=== PATIENT | female | born 1980 | race Caucasian/White ===

== ENCOUNTER 2016-09-12 16:21 | Emergency (ER) | payer OTHER ==
[~2016-09-12] VITALS: Ht 157.5 cm; Wt 90.7 kg
[2016-09-12 16:45] LABS: URINE BILIRUBIN NEGATIVE (Negative); URINE BLOOD TRACE (Negative); URINE COLOR YELLOW; URINE GLUCOSE-RANDOM* NEGATIVE (Negative); URINE KETONES NEGATIVE (Negative); URINE LEUKOCYTES-REFLEX NEGATIVE (Negative); URINE PROTEIN (DIPSTICK) NEGATIVE (Negative); URINE SPECIFIC GRAVITY <= 1.005 (1.003-1.035); URINE UROBILINOGEN 0.2 E.U./dl (0.2-1.0)
[2016-09-12] MEDS ORDERED: FLAGYL500 MG PO (16:57)
[2016-09-12] MEDS ORDERED: CIPRO500 MG PO (16:57)
[2016-09-12] MEDS ORDERED: VENLAFAXIN75 MG/1 T2 PO (16:57)
[2016-09-12] MEDS ORDERED: DICLOFENAC SODI75 MG PO (16:58)
[2016-09-12] MEDS ORDERED: HYDROXYZINE HCL25 M1 PO (16:58)
[2016-09-12] MEDS ORDERED: HYDROCODON-ACE1 EAC7 PO (16:59)
[2016-09-12] MEDS ORDERED: OMEPRAZOLE40 MG PO (16:59)
[2016-09-12] MEDS ORDERED: TRAZODONE HCL50 MG PO (17:00)
[2016-09-12] MEDS ORDERED: ZANAFLEX4 MG PO (17:00)
[2016-09-12] MEDS ORDERED: TRAMADOL 50 MG50 MG PO (17:00)
[2016-09-12 17:10] LABS: ABSOLUTE NEUTROPHILS 4.7 thou/uL (1.4-8.2); BASOPHILS 0.7 % (0.0-2.0); EOSINOPHILS 3.1 % (0.0-3.0); HEMATOCRIT 40.4 % (37.0-47.0); HEMOGLOBIN 13.6 gm/dL (12.0-15.0); MCH 30.9 pg (26.0-34.0); MCHC 33.7 % (28.0-37.0); MCV 91.9 fL (80.0-100.0); MONOCYTES 5.6 % (1.0-8.0); PLATELET COUNT 243 thou/uL (150-400); POLYS 62.6 % (36.0-66.0); RBC 4.39 mil/uL (4.20-5.00); RDW 13.4 % (10.5-14.5); WBC 7.6 thou/uL (4.0-11.0)
[2016-09-12 17:14] LABS: MANUAL DIFF NO
[2016-09-12 17:21] LABS: CALCIUM 8.7 mg/dL (8.5-10.1); CREATININE 0.7 mg/dL (0.6-1.3); POTASSIUM 3.5 mmol/L (3.5-5.1)
[2016-09-12 17:24] LABS: ALBUMIN 3.8 g/dL (3.4-5.0); TOTAL BILIRUBIN 0.2 mg/dL (<0.1-1.0); TOTAL PROTEIN 7.2 g/dL (6.4-8.2)
[2016-09-12] MEDS ORDERED: ONDANSETRON HCL4 M2 PO (18:17)
[2016-09-12 19:12] VITALS: BP 121/76
== END 2016-09-12 16:45 | disposition home or self-care (01) ==
LOC: ER 16:21
PROVIDERS: Physician Assistant
DX: R10.32 Left lower quadrant pain (principal); R11.2 Nausea with vomiting, unspecified; R19.7 Diarrhea, unspecified; R51 Headache; Z88.5 Allergy status to narcotic agent; Z88.1 Allergy status to other antibiotic agents; Z90.49 Acquired absence of other specified parts of digestive tract; Z98.890 Other specified postprocedural states; Z90.711 Acquired absence of uterus with remaining cervical stump

== ENCOUNTER 2017-03-14 15:10 | Emergency (ER) | payer OTHER ==
[~2017-03-14] VITALS: Ht 154.9 cm; Wt 90.7 kg
[~2017-03-14 15:10] MED LIST: CIPRO500 MG PO; DICLOFENAC SODI75 MG PO; FLAGYL500 MG PO; HYDROCODON-ACE1 EAC7 PO; HYDROXYZINE HCL25 M1 PO; OMEPRAZOLE40 MG PO; ONDANSETRON HCL4 M2 PO; TRAMADOL 50 MG50 MG PO; TRAZODONE HCL50 MG PO; VENLAFAXIN75 MG/1 T2 PO; ZANAFLEX4 MG PO
[2017-03-14 15:51] LABS: URINE BILIRUBIN NEGATIVE (Negative); URINE BLOOD NEGATIVE (Negative); URINE COLOR YELLOW; URINE GLUCOSE-RANDOM* NEGATIVE (Negative); URINE KETONES NEGATIVE (Negative); URINE NITRITE NEGATIVE (Negative); URINE PROTEIN (DIPSTICK) NEGATIVE (Negative); URINE SPECIFIC GRAVITY <= 1.005 (1.003-1.035); URINE UROBILINOGEN 0.2 E.U./dl (0.2-1.0)
[2017-03-14 15:58] LABS: BACTERIA 1-9 Few /HPF (None Seen); CASTS None Seen /LPF (None Seen); CRYSTALS None Seen /LPF (None Seen); SQUAMOUS 0-3 Few /LPF (0-3); URINE RBC None Seen /HPF (0-2); URINE WBC 6-15 Few /HPF (0-5); WBC CLUMPS Occasional (None Seen)
[2017-03-14] MEDS ORDERED: FLAGYL500 MG PO (16:25)
[2017-03-14] MEDS ORDERED: KEFLEX500 MG PO (16:30)
[2017-03-14 17:11] VITALS: BP 141/91
[2017-03-17 15:06] LABS: CHLAMYDIA TRACHOMATIS-PCR Negative (Negative); NEISSERIA GONORRHEA-PCR Negative (Negative)
== END 2017-03-14 17:14 | disposition home or self-care (01) ==
LOC: ER 15:10
PROVIDERS: Physician Assistant
DX: N39.0 Urinary tract infection, site not specified (principal); N89.8 Other specified noninflammatory disorders of vagina; A59.9 Trichomoniasis, unspecified; G43.909 Migraine, unspecified, not intractable, without status migrainosus; K31.84 Gastroparesis; Z98.890 Other specified postprocedural states; Z90.711 Acquired absence of uterus with remaining cervical stump; Z90.49 Acquired absence of other specified parts of digestive tract; Z88.8 Allergy status to other drugs, medicaments and biological substances; Z88.1 Allergy status to other antibiotic agents; Z88.5 Allergy status to narcotic agent

== ENCOUNTER 2018-06-19 10:35 | Emergency (ER) | payer OTHER ==
[~2018-06-19] VITALS: Ht 154.9 cm; Wt 99.8 kg
[~2018-06-19 10:35] MED LIST changes: +KEFLEX500 MG PO
[2018-06-19 10:59] LABS: URINE BILIRUBIN NEGATIVE (Negative); URINE BLOOD 1+ (Negative); URINE CLARITY CLEAR; URINE COLOR YELLOW; URINE GLUCOSE-RANDOM* NEGATIVE (Negative); URINE KETONES NEGATIVE (Negative); URINE NITRITE-REFLEX NEGATIVE (Negative); URINE PROTEIN (DIPSTICK) NEGATIVE (Negative); URINE SPECIFIC GRAVITY >= 1.030 (1.005-1.035); URINE UROBILINOGEN 0.2 E.U./dl (0.2-1.0)
[2018-06-19 11:00] LABS: URINE LEUKOCYTES-REFLEX 2+ (Negative)
[2018-06-19 11:07] LABS: MUCUS 4-6 Moderate strn/LPF (None Seen); SQUAMOUS >10 Many /LPF (0-3)
[2018-06-19 11:09] LABS: URINE RBC 3-10 Few /HPF (0-2)
[2018-06-19 11:14] LABS: CASTS None Seen /LPF (None Seen); CRYSTALS None Seen /LPF (None Seen)
[2018-06-19] MEDS ORDERED: FLAGYL500 MG PO (11:56)
[2018-06-19] MEDS ORDERED: MACROBID 100 M100 M1 PO (11:56)
[2018-06-19 12:39] LABS: ABSOLUTE NEUTROPHILS 2.8 thou/uL (1.4-8.2); BASOPHILS 0.6 % (0.0-2.0); EOSINOPHILS 2.3 % (0.0-3.0); HEMATOCRIT 38.8 % (37.0-47.0); HEMOGLOBIN 13.6 gm/dL (12.0-15.0); LYMPHOCYTES 39.2 % (24.0-44.0); MCH 31.7 pg (26.0-34.0); MCV 90.6 fL (80.0-100.0); MONOCYTES 5.8 % (1.0-8.0); PLATELET COUNT 221 thou/uL (150-400); POLYS 52.1 % (36.0-66.0); RBC 4.28 mil/uL (4.20-5.00); RDW 12.8 % (10.5-14.5); WBC 5.4 thou/uL (4.0-11.0)
[2018-06-19 12:49] LABS: CALCIUM 9.1 mg/dL (8.5-10.1); CREATININE 0.6 mg/dL (0.6-1.0); POTASSIUM 3.8 mmol/L (3.5-5.1)
== END 2018-06-19 13:34 | disposition home or self-care (01) ==
LOC: ER 10:35
PROVIDERS: Physician Assistant
DX: A59.01 Trichomonal vulvovaginitis (principal); N39.0 Urinary tract infection, site not specified; K31.84 Gastroparesis; G43.909 Migraine, unspecified, not intractable, without status migrainosus; Z88.8 Allergy status to other drugs, medicaments and biological substances; Z88.1 Allergy status to other antibiotic agents; Z88.5 Allergy status to narcotic agent; Z98.890 Other specified postprocedural states; Z90.711 Acquired absence of uterus with remaining cervical stump; Z90.49 Acquired absence of other specified parts of digestive tract

== ENCOUNTER 2019-09-15 20:31 | Emergency (ER) | payer BC ==
[~2019-09-15] VITALS: Ht 154.9 cm; Wt 88.5 kg
[~2019-09-15 20:31] MED LIST changes: +MACROBID 100 M100 M1 PO
[2019-09-15 21:14] LABS: URINE BILIRUBIN NEGATIVE (Negative); URINE BLOOD NEGATIVE (Negative); URINE CLARITY CLEAR; URINE COLOR YELLOW; URINE GLUCOSE-RANDOM* NEGATIVE (Negative); URINE KETONES NEGATIVE (Negative); URINE LEUKOCYTES-REFLEX NEGATIVE (Negative); URINE NITRITE-REFLEX NEGATIVE (Negative); URINE PROTEIN (DIPSTICK) NEGATIVE (Negative); URINE UROBILINOGEN 0.2 E.U./dl (0.2-1.0)
[2019-09-15] MEDS ORDERED: NEURONTIN300 MG PO (21:34)
[2019-09-15 21:35] LABS: ABSOLUTE NEUTROPHILS 3.7 thou/uL (1.4-8.2); BASOPHILS 0.4 % (0.0-2.0); HEMATOCRIT 36.9 % (37.0-47.0); HEMOGLOBIN 12.3 gm/dL (12.0-15.0); MCH 30.5 pg (26.0-34.0); MCHC 33.4 g/dL (28.0-37.0); MCV 91.4 fL (80.0-100.0); MONOCYTES 6.1 % (1.0-8.0); PLATELET COUNT 258 thou/uL (150-400); POLYS 54.5 % (36.0-66.0); RBC 4.04 mil/uL (4.20-5.00); RDW 12.9 % (10.5-14.5); WBC 6.9 thou/uL (4.0-11.0)
[2019-09-15] MEDS ORDERED: VENTOLIN HFA 1818 GM INH (21:35)
[2019-09-15] MEDS ORDERED: ZANTAC 150MG T150 M1 PO (21:35)
[2019-09-15] MEDS ORDERED: NEURONTIN 400M400 M2 PO (21:35)
[2019-09-15 21:46] LABS: CALCIUM 9.1 mg/dL (8.5-10.1); CREATININE 0.8 mg/dL (0.6-1.0); POTASSIUM 3.7 mmol/L (3.5-5.1)
[2019-09-15 21:52] LABS: TOTAL BILIRUBIN 0.2 mg/dL (<0.1-1.0); TOTAL PROTEIN 7.7 g/dL (6.4-8.2)
[2019-09-15 23:03] VITALS: BP 133/72
== END 2019-09-15 23:22 | disposition home or self-care (01) ==
LOC: ER 20:31
PROVIDERS: Nurse Practitioner
DX: R10.32 Left lower quadrant pain (principal); M54.5 Low back pain; G43.909 Migraine, unspecified, not intractable, without status migrainosus; K31.84 Gastroparesis; Z98.890 Other specified postprocedural states; Z88.1 Allergy status to other antibiotic agents; Z88.5 Allergy status to narcotic agent; Z88.8 Allergy status to other drugs, medicaments and biological substances